=== PATIENT | female | born 2000 | race Caucasian/White ===

== ENCOUNTER 2020-10-02 13:20 | Emergency (ER) | payer OTHER ==
[~2020-10-02] VITALS: Ht 157.5 cm; Wt 72.6 kg
[2020-10-02 13:31] VITALS: BP 119/69; Ht 157.5 cm; Wt 72.6 kg
== END 2020-10-02 15:47 | disposition home or self-care (01) ==
LOC: ED 13:20
DX: S20.212A Contusion of left front wall of thorax, initial encounter (principal); W18.40XA Slipping, tripping and stumbling without falling, unspecified, initial encounter; Y93.89 Activity, other specified; Y92.89 Other specified places as the place of occurrence of the external cause; Y99.8 Other external cause status